=== PATIENT | female | born 1965 | race Caucasian/White ===

== ENCOUNTER → 2021-05-03 | Outpatient (CLI) | payer OTHER ==
--- NOTE | 2021-05-08 13:32 | MM ---
Reason for exam: screening (asymptomatic). Last mammogram was performed 1 year and 8 months ago. History: Patient is postmenopausal and is nulliparous. Physical Findings: A clinical breast exam by your physician is recommended on an annual basis and results should be correlated with mammographic findings. MG Screening Mammo w CAD Bilateral CC and MLO view(s) were taken. Prior study comparison: September 09, 2019, bilateral foundation screening mammo. December 11, 2017, mammogram. The breast tissue is extremely dense which could obscure a lesion on mammography. There is no discrete abnormality. ASSESSMENT: Negative, BI-RAD 1 RECOMMENDATION: Routine screening mammogram of both breasts in 1 year.
== END | disposition home or self-care (01) ==
LOC: RADMAMWWP 12:40
PROVIDERS: ATTEND Family Medicine
DX: Z12.31 Encounter for screening mammogram for malignant neoplasm of breast (principal); Z78.0 Asymptomatic menopausal state
CPT/HCPCS: 77067

== ENCOUNTER → 2022-05-08 | Outpatient (CLI) | payer OTHER ==
--- NOTE | 2022-05-13 13:51 | MM ---
Reason for Exam: Screening (asymptomatic). Last screening mammogram was performed 12 month(s) ago. Patient History: Menarche at age 12. Patient has no children. Postmenopausal. Risk Values: Tangela 5 year model risk: 1.4%. NCI Lifetime model risk: 7.6%. Prior Study Comparison: 12/11/2017 Screening Mammogram, Unknown. 09/09/2019 Bilateral Screening Mammogram, [facility]. 05/03/2021 Bilateral Screening Mammogram, [facility]. Tissue Density: The breast tissue is heterogeneously dense. This may lower the sensitivity of mammography. Findings: Analyzed By CAD. Area of asymmetric density subareolar left MLO view is more defined and incompletely disperses on 3-D images. Findings may represent superimposition shadow but further evaluation is recommended. Otherwise, no significant change. Overall Assessment: Incomplete: need additional imaging evaluation, BI-RAD 0 Management: Special View Mammogram of the left breast. 1. Additional views left breast to include spot 3-D MLO and 3-D lateral views. 2. Whole left breast ultrasound given the dense tissues, particular attention to the subareolar and periareolar region. Electronically signed and approved by: Isis Goins M.D. Radiologist
== END | disposition home or self-care (01) ==
LOC: RADMAMWWP 13:53
PROVIDERS: ATTEND Family Medicine
DX: Z00.00 Encounter for general adult medical examination without abnormal findings (principal); Z12.31 Encounter for screening mammogram for malignant neoplasm of breast
CPT/HCPCS: 77063; 77067

== ENCOUNTER → 2022-05-21 | Outpatient (CLI) | payer OTHER ==
--- NOTE | 2022-05-21 14:34 | MM ---
Reason for Exam: Additional evaluation requested from abnormal screening. Last screening mammogram was performed less than 1 month ago. Patient History: Menarche at age 12. Patient has no children. Postmenopausal. Risk Values: Tangela 5 year model risk: 1.4%. NCI Lifetime model risk: 7.6%. Prior Study Comparison: 09/09/2019 Bilateral Screening Mammogram, [facility]. 05/03/2021 Bilateral Screening Mammogram, [facility]. 05/08/2022 Bilateral MG 3D screening mammo w/cad, [facility]. Tissue Density: Left: The breast tissue is extremely dense which could obscure a lesion on mammography. Findings: Analyzed By CAD. Under compression no persistent suspicious densities evident. Mediolateral view appears normal. No underlying spiculated or lobular masses are evident. Overall Assessment: Probably benign, BI-RAD 3 Management: Diagnostic Mammogram of the left breast in 6 months. A clinical breast exam by your physician is recommended on an annual basis and results should be correlated with mammographic findings. This exam should not preclude additional follow-up of suspicious palpable abnormalities. Results were given to the patient verbally at the time of exam. Electronically signed and approved by: Hung Green D.O. Radiologis
== END | disposition home or self-care (01) ==
LOC: RADMAMWWP 13:29
PROVIDERS: ATTEND Family Medicine
DX: R92.8 Other abnormal and inconclusive findings on diagnostic imaging of breast (principal)
CPT/HCPCS: 77061; 77065